=== PATIENT | female | born 1995 | race Caucasian/White ===

== ENCOUNTER 2018-06-12 11:04 | Emergency (ER) | payer OTHER ==
[2018-06-12 12:11] VITALS: BP 114/71
[2018-06-12] MEDS ORDERED: Ketorolac INJ* 30 MG/ML 1 ML VIAL IM ONE (13:00)
[2018-06-12] MEDS ORDERED: Cyclobenzaprine TAB* 10 MG PO ONE (13:00)
--- NOTE | 2018-06-12 13:56 | ED ---
Back Pain - HPI Summary HPI Summary: pt was at work. she was moving a patient and she hurt her back. she denies any bowel or urinary incontinence or any saddle paresthesias. she states that it hurt to her thoracic area on the left side. it hurts to move and twist. - History of Current Complaint Chief Complaint: UCBackPain Stated Complaint: WC-BACK PAIN Hx Obtained From: Patient Hx Last Menstrual Period: 05/28/18 Onset/Duration: Sudden Onset Onset/Duration: Started Hours Ago Timing: Constant Severity Initially: Mild Severity Currently: Mild Pain Intensity: 5 Aggravating Symptom(s): Movement, Bending Alleviating Symptom(s): Rest - Allergies/Home Medications Allergies/Adverse Reactions: Allergies Allergy/AdvReac Type Severity Reaction Status Date / Time Pertussis Vaccines Allergy Unknown Verified 06/12/18 12:04 Reaction Details Home Medications: Home Medications Norgestimate-Ethinyl Estradiol [Tri-Previfem Tablet] 1 tab DAILY 06/12/18 [ History Confirmed 06/12/18] PMH/Surg Hx/FS Hx/Imm Hx Previously Healthy: Yes Respiratory History: Denies: Hx Asthma - Surgical History Surgery Procedure, Year, and Place: Tonsils- 12/2016 Infectious Disease History: No Infectious Disease History: Denies: Traveled Outside the [place] in Last 30 Days - Family History Known Family History: Positive: None - Social History Alcohol Use: Occasionally Substance Use Type: Reports: None Smoking Status (MU): Never Smoked Tobacco Review of Systems Constitutional: Negative Eyes: Negative ENT: Negative Cardiovascular: Negative Respiratory: Negative Gastrointestinal: Negative Genitourinary: Negative Positive: Myalgia Skin: Negative Neurological: Negative Psychological: Normal All Other Systems Reviewed And Are Negative: No Physical Exam Triage Information Reviewed: Yes Vital Signs On Initial Exam: Initial Vitals Temp Pulse Resp BP Pulse Ox 97.8 F 74 16 114/71 99 06/12/18 12:05 06/12/18 12:05 06/12/18 12:05 06/12/18 12:05 06/12/18 12:05 Vital Signs Reviewed: Yes Appearance: Positive: Well-Appearing, No Pain Distress, Well-Nourished Skin: Positive: Warm, Dry Head/Face: Positive: Normal Head/Face Inspection Eyes: Positive: Normal ENT: Positive: Hearing grossly normal, Pharynx normal Neck: Positive: Supple, Nontender Respiratory/Lung Sounds: Positive: Clear to Auscultation, Breath Sounds Present Cardiovascular: Positive: Normal, RRR Abdomen Description: Positive: Nontender, Soft Bowel Sounds: Positive: Present Musculoskeletal: Positive: Normal, Strength/ROM Intact Neurological: Positive: Normal, Sensory/Motor Intact, CN Intact II-III Psychiatric: Positive: Normal AVPU Assessment: Alert Diagnostics - Vital Signs Vital Signs Temp Pulse Resp BP Pulse Ox 06/12/18 12:05 97.8 F 74 16 114/71 99 - Laboratory Lab Statement: Any lab studies that have been ordered have been reviewed, and results considered in the medical decision making process. Back Pain Course/Dx - Course Course Of Treatment: pt was given im toradol. she is feeling slightly better. rx for flexeril given. xrays show no acute findings. pt shown stretching exercises. she was encouraged not to lift anything heavy and to go home today since there is no light duty at work. - Diagnoses Provider Diagnoses: Back strain Discharge - Sign-Out/Discharge Documenting (check all that apply): Patient Departure All imaging exams completed and their final reports reviewed: Yes - Discharge Plan Condition: Stable Disposition: HOME Prescriptions: Cyclobenzaprine TAB* [Flexeril 10 MG TAB*] 10 mg PO TID PRN #20 tab MDD 3 PRN Reason: Pain Patient Education Materials: Muscle Strain (ED) Forms: *Work Release Referrals: Freedom Mireles DO [Primary Care Provider] - Additional Instructions: stretching exercises as instructed. take tylenol and motrin for pain. use the flexeril for muscle spasms. return if worse or any new symptoms. no heavy lifting for the next 2-3 days. - Billing Disposition and Condition Condition: STABLE Disposition: Home
== END 2018-06-12 14:07 | disposition home or self-care (01) ==
LOC: UCCORT 11:04
DX: S29.012A Strain of muscle and tendon of back wall of thorax, initial encounter (principal); Z88.7 Allergy status to serum and vaccine; X58.XXXA Exposure to other specified factors, initial encounter; Y92.9 Unspecified place or not applicable
CPT/HCPCS: 72070; 96372; 99212; G0463; J1885